=== PATIENT | female | born 1985 | race African-American/Black ===

== ENCOUNTER 2019-04-20 17:32 | Observation (INO) ==
[2019-04-20 18:51] LABS: Albumin 4.1 G/DL (3.4-5.0); Bilirubin,Total 0.7 MG/DL (0.2-1.0); Calcium 9.2 MG/DL (8.5-10.1); Osmolality,Calculated 272.7 MOS/KG (273-304); Total Protein 7.8 G/DL (6.4-8.3)
[2019-04-20 19:05] LABS: Basophils % 0.9 % (0.0-0.8); Eosinophils % 0.2 % (0.00-10.9); Hematocrit 27.8 VOL% (35.7-47.0); Hemoglobin 7.5 GM/DL (12.0-16.0); Immature Granulocytes % 0.2 %; Immature Granulocytes Absolute 0.01 #; Lymphocytes # 2.1 10*3/uL (1.4-4.0); Lymphocytes % 47.1 % (21.3-54.2); Mean Corpuscular Volume 66.2 FL (87-102); Mean Platelet Volume 10.7 FL (9.6-12.0); Neutrophils % 42.6 % (38.7-73.9); Platelet Count 342 T/CUMM (130-400); Red Cell Distribution Width 18.4 % (9.3-17.3); White Blood Count 4.4 T/CUMM (4-12)
[2019-04-20] MEDS ORDERED: ACETAMINOPHEN 325 MG TABLET PO PRN (19:50)
[2019-04-20] MEDS ORDERED: SODIUM CHLORIDE 0.9% 1,000 ML IV PRN (19:50)
[2019-04-20] MEDS ORDERED: ONDANSETRON 4 MG/2 ML VIAL IV PRN (19:50)
[2019-04-20 21:11] LABS: Hypochromasia 2+
[2019-04-20 21:12] LABS: Microcytosis 3+; Platelet Estimate Normal; Polychromasia 1+
[2019-04-20 21:13] LABS: Anisocytosis 2+; Ovalocytes Few
[2019-04-21 06:15] LABS: Hemoglobin 9.1 GM/DL (12.0-16.0)
[2019-04-21 06:41] LABS: Hematocrit 31.6 VOL% (35.7-47.0)
[2019-04-21] MEDS ORDERED: ETHINYL ESTRADIOL/NORGESTREL 0.03-0.3 MG TABLET PO SCH (09:00)
[2019-04-21] MEDS ORDERED: PANTOPRAZOLE 40 MG TABLET PO SCH (09:00)
[2019-04-21] MEDS ORDERED: IRON SUCROSE 200 MG in SODIUM CHLORIDE 0.9% 100 ML IV SCH (10:04)
[2019-04-21 12:49] VITALS: BP 102/75
[2019-04-21] MEDS ORDERED: MIRTAZAPINE 15 MG TABLET PO SCH (21:00)
== END 2019-04-21 14:33 | disposition home or self-care (01) ==
LOC: EDBD → EDUNIT# → N.ED 17:32 → N.EDINP 17:32 → N.2W 20:27
PROVIDERS: ADMIT Internal Medicine; ATTEND Internal Medicine